=== PATIENT | female | born 1955 | race Caucasian/White ===

== ENCOUNTER 2020-01-13 06:22 | Day surgery (SDC) | payer OTHER ==
[2020-01-11 12:42] LABS: BASOPHILS % (AUTO) 0.7 % (0.0-2.0); EOSINOPHILS % (AUTO) 2.2 % (1.0-6.0); HEMATOCRIT 42.7 % (36-46); HEMOGLOBIN 14.1 g/dL (12.0-16.0); LYMPHOCYTES # (AUTO) 1.7 K/uL (1.0-4.8); LYMPHOCYTES % (AUTO) 21.5 % (22.0-44.0); MEAN CORPUSCULAR HEMOGLOBIN 28.1 pg (26.0-34.0); MEAN CORPUSCULAR HGB CONC 33.1 G/dL (31.0-37.0); MEAN CORPUSCULAR VOLUME 85 fL (80-100); MONOCYTES # (AUTO) 0.5 K/uL (0.1-1.0); MONOCYTES % (AUTO) 6.1 % (2.0-9.0); NEUTROPHILS # (AUTO) 5.5 K/uL (1.8-7.7); NEUTROPHILS % (AUTO) 69.5 % (40.0-70.0); PLATELET COUNT (AUTO) 214 K/uL (150-450); RED BLOOD CELL COUNT(AUTO) 5.02 MIL/uL (4.00-5.20); RED CELL DISTRIBUTION WIDTH 13.9 % (11.5-14.5)
[2020-01-11 12:49] LABS: ANION GAP 11 mmol/L (8-16); CALCIUM, TOTAL 8.8 mg/dL (8.8-10.5); CARBON DIOXIDE 25 mmol/L (22-29); CHLORIDE 106 mmol/L (98-107); CREATININE 0.89 mg/dL (0.60-1.30); GLOMERULAR FILTR. RATE CALC > 60 mL/min (>60); GLUCOSE,RANDOM 146 mg/dL (70-110); POTASSIUM 3.6 mmol/L (3.5-5.1); SODIUM SERUM 142 mmol/L (136-145); UREA NITROGEN, BLOOD 12 mg/dL (7-18)
[2020-01-11 12:59] LABS: PROTHROMBIN TIME 10.3 SEC (9.4-11.6)
[~2020-01-13] VITALS: Ht 157.5 cm; Wt 90.9 kg
[~2020-01-13 06:22] MED LIST: RINGERS SOLUTION,LACTATED 1,000 ML IV ONE
[2020-01-13] MEDS ORDERED: NEOSTIGMINE METHYLSULFATE 1 MG/ML 10 ML VIAL IVP ONE (06:23)
[2020-01-13] MEDS ORDERED: DEXAMETHASONE SOD PHOS 4 MG/ML VIAL IVP ONE (06:23)
[2020-01-13] MEDS ORDERED: ONDANSETRON HCL 4 MG/2 ML VIAL IVP ONE (06:23)
[2020-01-13] MEDS ORDERED: MIDAZOLAM HCL 2 MG/2 ML VIAL IVP ONE (06:23)
[2020-01-13] MEDS ORDERED: KETOROLAC TROMETHAMINE 60 MG/2 ML VIAL IM ONE (06:23)
[2020-01-13] MEDS ORDERED: FentaNYL CITRATE-PF 100 MCG/2 ML VIAL IVP ONE (06:23)
[2020-01-13] MEDS ORDERED: ROCURONIUM BROMIDE 10 MG/ML 5 ML VIAL IVP ONE (06:23)
[2020-01-13] MEDS ORDERED: PROPOFOL 1% 20 ML VIAL IVP ONE (06:23)
[2020-01-13] MEDS ORDERED: SUGAMMADEX SODIUM 200 MG/2 ML VIAL IVP ONE ×2 (06:23→08:32)
[2020-01-13] MEDS ORDERED: METOCLOPRAMIDE HCL 5 MG/ML 2 ML VIAL IVP ONE (06:23)
[2020-01-13] MEDS ORDERED: LIDOCAINE 1% 10 ML VIAL IM ONE (06:23)
[2020-01-13] MEDS ORDERED: SODIUM CL IRRIG SOLN BAG 3,000 ML IRRIG ONE ×3 (06:40→08:53)
[2020-01-13] MEDS ORDERED: ZOLP10TA8 PO (07:02)
[2020-01-13] MEDS ORDERED: CIME300T PO (07:02)
[2020-01-13] MEDS ORDERED: SERT50TA12 PO (07:02)
[2020-01-13] MEDS ORDERED: OMEP20 PO (07:02)
[2020-01-13] MEDS ORDERED: METF-960 PO (07:02)
[2020-01-13] MEDS ORDERED: ALPR-340 PO (07:02)
[2020-01-13] MEDS ORDERED: GABA800T9 PO (07:02)
[2020-01-13] MEDS ORDERED: SIMV-46 PO (07:02)
[2020-01-13] MEDS ORDERED: HYDR-4031 PO (07:02)
[2020-01-13] MEDS ORDERED: IBUP-2077 PO (07:02)
[2020-01-13] MEDS ORDERED: VASOPRESSIN 20 UNITS/ML VIAL ONE (08:14)
[2020-01-13] MEDS ORDERED: SODIUM CHLORIDE 0.9% 100 ML ONE (08:20)
[2020-01-13] MEDS ORDERED: DOXYCYCLINE HYCLATE 100 MG in DEXTROSE 5%-WATER 100 ML IV ONE (08:30)
[2020-01-13] MEDS ORDERED: FentaNYL CITRATE-PF 100 MCG/2 ML VIAL IVP PRN (08:30)
[2020-01-13] MEDS ORDERED: HYDROmorphone 2 MG/ML SYRINGE IVP PRN (08:30)
[2020-01-13] MEDS ORDERED: MEPERIDINE-PF 25 MG/ML VIAL IVP PRN (08:30)
[2020-01-13] MEDS ORDERED: RINGERS SOLUTION,LACTATED 1,000 ML IV ONE (08:49)
[2020-01-13] MEDS ORDERED: OXYGEN THERAPY IH SCH (20:00)
== END 2020-01-13 11:00 | disposition home or self-care (01) ==
LOC: SURGERY 06:22
PROVIDERS: ATTEND Obstetrics & Gynecology
DX: N88.8 Other specified noninflammatory disorders of cervix uteri (principal); N84.1 Polyp of cervix uteri; N84.0 Polyp of corpus uteri; Z79.899 Other long term (current) drug therapy; Z98.51 Tubal ligation status; Z98.890 Other specified postprocedural states
CPT/HCPCS: 36415 ×2; 57500; 58563; 71045; 80048; 83036; 85025; 85610; 85730; 87635; 93005; J1100; J1885; J2250; J2405; J2704; J2765; J3010; J3490 ×4; J7050; J7060; J7120